=== PATIENT | female | born 1985 | race Caucasian/White ===

== ENCOUNTER 2021-06-14 22:17 | Emergency (ER) | payer MEDICAID ==
[~2021-06-14] VITALS: Ht 160 cm; Wt 79.4 kg
--- NOTE | 2021-06-14 22:26 | NUR ---
EKG DONE IN TRIAGE.
--- NOTE | 2021-06-14 23:24 | NUR ---
PT AMBULATED TO ROOM WITH RN. PT REPORTS SOB AND CHEST PAIN WITH BREATHING X SEVERAL DAYS. HX ASTHMA, NO IMPROVEMENT IN S/S WITH HOME INHALER. REPORTS PRODUCTIVE COUGH WITH YELLOW SPUTUM; DENIES FEVER OR EXERTIONAL S/S. SPEAKING IN FULL SENTENCES W HOARSE VOICE. SPO2 >90% ON RA. AIWAY PATENT AND MANAGING OWN SECRETIONS. BP/SPO2/ECG MONITORING IN PLACE.
[2021-06-14 23:37] VITALS: BP 113/70
--- NOTE | 2021-06-15 01:00 | NUR ---
PT DC'D BY BURAK WETZEL. AMBULATED STEADILY TO DC
== END 2021-06-15 01:36 | disposition home or self-care (01) ==
LOC: ED 23:59
DX: J06.9 Acute upper respiratory infection, unspecified (principal); Z20.822 Contact with and (suspected) exposure to COVID-19; R06.02 Shortness of breath
CPT/HCPCS: 71045; 93005; 99285; U0003; U0005